=== PATIENT | male | born 1950 | race Caucasian/White ===

== ENCOUNTER → 2016-10-01 | Outpatient (CLI) | payer MEDICARE, OTHER ==
[~2016-10-01] MED LIST: ASCORBIC ACID500 MG PO; ASPIR 8181 MG PO; ASPIRIN LO-DOSE81 MG PO; AUGMENTIN 875-1 EACH PO; BACLOFEN10 MG PO; BACTRIM DS1 TAB PO; CALAN80 MG PO; CALCIUM 500 +1 EACH PO; COLACE100 MG PO; DELTASONE5 MG PO; DEPAKOTE ER250 MG PO; DEPAKOTE ER500 MG PO; DURAGESIC 50MC50 MCG TOP; FLAGYL500 MG PO; FLOMAX0.4 MG PO; FLORASTOR250 MG PO; LEVOTHROID (S112 MCG PO; LIPITOR20 M1 PO; MIRAPEX0.75 MG PO; MULTIVITAMINS1 EAC1 PO; MYCOSTATIN OINT30 GM TOP; OCEAN NASAL) (A44 ML NOSE; OSCAL + D500 MG PO; PROAMATINE5 MG PO; PROSCAR5 MG PO; PROTONIX40 MG PO; REGLAN5 MG PO; SANCTURA 20MG20 MG PO; TYLENOL EXTRA500 MG PO; TYLENOL325 MG PO; VANCOCIN HCL125 MG PO; VOTRIENT200 MG PO
[2016-10-01 08:46] LABS: MPV 11.4 fl (9.4-12.4); WBC 12.6 K/uL (4.0-11.0)
[2016-10-01 08:58] LABS: HEMOGLOBIN 7.5 g/dL (11.0-16.0); MCH 30.1 pg (27.0-34.0); MCHC 31.3 gm/dL (32.0-36.5); MCV 96.4 fl (83.0-98.0); PLATELET COUNT 151 K/uL (150-450); RBC 2.49 M/uL (3.50-5.50)
[2016-10-01 08:59] LABS: ALK PHOS 58 IU/L (33-138); ALT 26 IU/L (12-78); AST 17 IU/L (10-40); BLOOD UREA NITROGEN 22 mg/dL (6-24); CHLORIDE 113 mMol/L (96-110); CO2 23 mMol/L (22-32); CREATININE 0.4 mg/dL (0.6-1.3); ESTIMATED GFR (MDRD EQUATION) > 60; SODIUM 145 mMol/L (135-145)
[2016-10-01 09:09] LABS: ALBUMIN 1.9 gm/dL (3.5-5.0); CALCIUM 6.6 mg/dL (8.5-10.5); TOTAL BILIRUBIN 0.4 mg/dL (0.0-1.5)
[2016-10-01 10:15] LABS: ABSOLUTE NEUTROPHIL CT (ANC) 9.8 K/uL (1.4-9.0); BANDED NEUTROPHIL # 1.9 K/uL (0.0-0.1); BANDED NEUTROPHILS % 15 %; LYMPHOCYTE # 0.8 K/uL (0.8-4.0); LYMPHOCYTE % 6 %; SEGMENTED NEUTROPHIL # 7.9 K/uL (1.4-9.0); SEGMENTED NEUTROPHIL % 63 %
== END | disposition disaster alternative care site (69) ==
PROVIDERS: Internal Medicine
DX: A41.1 Sepsis due to other specified staphylococcus (principal); D50.9 Iron deficiency anemia, unspecified; E87.6 Hypokalemia

== ENCOUNTER → 2016-10-13 | Outpatient (CLI) | payer MEDICARE, OTHER | END | disposition disaster alternative care site (69) | LOC: GAMB 03:31 | DX: R50.9 Fever, unspecified (principal); C79.31 Secondary malignant neoplasm of brain; I10 Essential (primary) hypertension; E03.9 Hypothyroidism, unspecified; Z85.528 Personal history of other malignant neoplasm of kidney; Z85.118 Personal history of other malignant neoplasm of bronchus and lung; Z79.899 Other long term (current) drug therapy; Z88.1 Allergy status to other antibiotic agents; Z88.8 Allergy status to other drugs, medicaments and biological substances | CPT/HCPCS: A0422; A0425; A0429; J7030 ==

== ENCOUNTER → 2017-01-21 | Outpatient (CLI) | payer MEDICARE, OTHER | END | disposition disaster alternative care site (69) | LOC: GRAD 13:58 | DX: C64.2 Malignant neoplasm of left kidney, except renal pelvis (principal); C78.00 Secondary malignant neoplasm of unspecified lung; G44.019 Episodic cluster headache, not intractable; C79.51 Secondary malignant neoplasm of bone; K52.1 Toxic gastroenteritis and colitis; R91.8 Other nonspecific abnormal finding of lung field ==

== ENCOUNTER → 2017-02-10 | Outpatient (CLI) | payer MEDICARE, OTHER | END | disposition disaster alternative care site (69) | LOC: GAMB 01:23 | DX: R50.9 Fever, unspecified (principal); G35 Multiple sclerosis; I10 Essential (primary) hypertension; E03.9 Hypothyroidism, unspecified; Z85.528 Personal history of other malignant neoplasm of kidney; Z85.118 Personal history of other malignant neoplasm of bronchus and lung; Z85.830 Personal history of malignant neoplasm of bone; Z79.899 Other long term (current) drug therapy; Z88.1 Allergy status to other antibiotic agents; Z88.8 Allergy status to other drugs, medicaments and biological substances | CPT/HCPCS: A0425; A0429 ==

== ENCOUNTER → 2017-02-17 | Outpatient (CLI) | payer MEDICARE, OTHER ==
[2017-02-17 13:13] LABS: BILIRUBIN URINE NEGATIVE (NEGATIVE); BLOOD URINE NEGATIVE /UL (NEGATIVE); COLOR URINE YELLOW (YELLOW); GLUCOSE URINE NEGATIVE (NEGATIVE); KETONE URINE NEGATIVE (NEGATIVE); LEUKOCYTES URINE NEGATIVE /UL (NEGATIVE); NITRITE URINE NEGATIVE (NEGATIVE); PROTEIN URINE NEGATIVE (NEGATIVE); TURBIDITY URINE 1+ (CLEAR); UROBILINOGEN URINE NORMAL (NORMAL)
[2017-02-17 13:21] LABS: BACTERIA URINE NEGATIVE (NEGATIVE); EPITHELIAL URINE NEGATIVE #/HPF (NEGATIVE); MUCUS URINE 1+ (NEGATIVE); RBC URINE 0-2 #/HPF (NEGATIVE); WBC URINE 0-2 #/HPF (NEGATIVE)
[2017-02-17 13:22] LABS: AMORPHOUS URINE 3+ (NEGATIVE); CRYSTALS URINE CALCIUM OXALATE (NEGATIVE)
== END ==
PROVIDERS: Internal Medicine
DX: N39.0 Urinary tract infection, site not specified (principal)